=== PATIENT | male | born 1980 | race Caucasian/White ===

== ENCOUNTER 2017-01-21 15:46 | Emergency (ER) | payer OTHER ==
[~2017-01-21] VITALS: Ht 182.9 cm; Wt 69.0 kg
[2017-01-21] MEDS ORDERED: HYDROcodone/APAP 5/325 TABLET PO ONE (16:30)
[2017-01-21] MEDS ORDERED: KETOROLAC 30 MG/1 ML IM ONE (16:30)
[2017-01-21] MEDS ORDERED: KETOROLAC 30 MG/1 ML ONE (16:48)
[2017-01-21] MEDS ORDERED: HYDROcodone/APAP 5/325 TABLET ONE (16:48)
[2017-01-21 17:20] VITALS: BP 125/82
== END 2017-01-21 17:30 | disposition home or self-care (01) ==
LOC: ED 17:24
DX: S20.212A Contusion of left front wall of thorax, initial encounter (principal); S60.211A Contusion of right wrist, initial encounter; V00.131A Fall from skateboard, initial encounter; Y93.51 Activity, roller skating (inline) and skateboarding; Y92.830 Public park as the place of occurrence of the external cause; Y99.9 Unspecified external cause status
CPT/HCPCS: 71020; 73110; 73130; 96372; 99284; J1885